=== PATIENT | male | born 1980 | race Hispanic/Latino ===

== ENCOUNTER 2016-06-23 03:29 | Emergency (ER) | payer OTHER ==
[2016-06-23 03:53] LABS: BASOPHIL COUNT 0.1 K/uL (0-0.1); EOSINOPHIL (%) 0.5 % (0-5); EOSINOPHIL COUNT 0.2 K/uL (0-0.3); HEMATOCRIT 49.6 % (38.0-50.0); IMMATURE GRANULOCYTE (%) 0.8 % (0.0-0.7); IMMATURE GRANULOCYTE COUNT 0.2 K/uL; INSTRUMENT ABS NEUTROPHIL CT 23.8 K/uL; LYMPHOCYTE COUNT 1.9 K/uL (1.0-2.8); MCH 28.9 PG (29.0-34.0); MCHC 33.7 G/DL (30.0-36.0); MCV 85.8 FL (86-99); MEAN PLAT.VOLUME 9.6 uM^3 (9.0-12.4); MONOCYTE (%) 6.3 % (3-12); MONOCYTE COUNT 1.8 K/uL (0-0.8); NEUTROPHIL (%) 85.2 % (45-76); NEUTROPHIL COUNT 23.8 K/uL (1.8-6.4); PLATELET COUNT 392 K/uL (156-360); RBC DIS.WIDTH-CV 12.8 % (11.8-14.6); RBC DIS.WIDTH-SD 39.6 % (39-53); RED BLOOD COUNT 5.78 M/uL (4.00-5.50)
[2016-06-23 04:01] LABS: AMYLASE 99 IU/L (1-118); CHLORIDE 114 mEq/L (99-109); POTASSIUM 3.5 mEq/L (3.7-5.4); SODIUM 145 mEq/L (136-147)
[2016-06-23 04:03] LABS: GLUCOSE 122 mg/dL (70-99)
[2016-06-23 04:04] LABS: ANION GAP 14 MEQ/L (2-14)
[2016-06-23 04:06] LABS: SERUM ETHYL ALCOHOL 168 mg/dL
[2016-06-23 04:08] LABS: UREA NITROGEN (BUN) 10 mg/dL (9-23)
[2016-06-23 04:10] LABS: LIPASE 32 U/L (1.0-51.0)
[2016-06-23 04:30] LABS: GFR ESTIMATE (CALCULATED) > 59 mL/min/
[2016-06-23] MEDS ORDERED: KEFLEX500 MG PO (06:35)
== END 2016-06-23 07:05 ==
LOC: TRA
PROVIDERS: Emergency Medicine
PROC: 0HQ1XZZ Repair Face Skin, External Approach (ICD-10-PCS; principal; 2016-06-23)
DX: S02.2XXA Fracture of nasal bones, initial encounter for closed fracture (principal); S01.81XA Laceration without foreign body of other part of head, initial encounter; S00.83XA Contusion of other part of head, initial encounter; F10.129 Alcohol abuse with intoxication, unspecified; Y90.6 Blood alcohol level of 120-199 mg/100 ml; Y09 Assault by unspecified means; Y92.143 Cell of prison as the place of occurrence of the external cause; Y07.59 Other non-family member, perpetrator of maltreatment and neglect
CPT/HCPCS: 70450; 70486; 72125; 80048; 81003; 82150; 83690; 85025; 86850; 86900; 86901; 99281; 99285; G0480